=== PATIENT | male | born 1980 | race Caucasian/White ===

== ENCOUNTER 2019-04-06 17:01 | Emergency (ER) | payer OTHER ==
[~2019-04-06] VITALS: Ht 190.5 cm; Wt 93.0 kg
[2019-04-06 17:14] VITALS: BP 141/79
[2019-04-06 17:24] LABS: ABSOLUTE NEUTROPHILS 3.6 thou/uL (1.4-8.2); BASOPHILS 1.2 % (0.0-2.0); EOSINOPHILS 6.7 % (0.0-3.0); HEMATOCRIT 45.2 % (42.0-52.0); HEMOGLOBIN 15.5 gm/dL (14.0-18.0); LYMPHOCYTES 32.5 % (24.0-44.0); MCH 30.3 pg (26.0-34.0); MCHC 34.3 g/dL (28.0-37.0); MCV 88.2 fL (80.0-100.0); MONOCYTES 6.9 % (1.0-8.0); PLATELET COUNT 326 thou/uL (150-400); POLYS 52.7 % (36.0-66.0); RBC 5.12 mil/uL (4.50-6.00); RDW 13.3 % (10.5-14.5); WBC 6.9 thou/uL (4.0-11.0)
[2019-04-06 17:29] LABS: ANION GAP 9 mmol/L (7-16); BUN 12 mg/dL (7-18); CALCIUM 9.2 mg/dL (8.5-10.1); CHLORIDE 101 mmol/L (98-107); CO2 27 mmol/L (21-32); GLUCOSE 96 mg/dL (74-106); POTASSIUM 3.7 mmol/L (3.5-5.1); SODIUM 137 mmol/L (136-145)
[2019-04-06 17:37] LABS: LIPASE 155 U/L (73-393); TROPONIN-I <0.06 ng/mL (<0.06)
[2019-04-06] MEDS ORDERED: ZPAK PO (17:52)
--- NOTE | 2019-04-07 07:46 | EKG ---
[place] [address] [facility] [place] [address] ELECTROCARDIOGRAM REPORT Name: JAISON VELEZ Room #: DEP Doyle#: [id number] Admission: 04/06/19 Attend Phys: Discharge: 04/06/19 Date of : 78 Report #: [id number] THIS REPORT FOR: //name// [facility] ED Test Date: 2019-04-06 Test Time: 16:58:10 Pat Name: JAISON VELEZ Department: Room: Gender: Frequency Checker: ga : 1980 Requested By: Danny Mclaughlin Order Number: [id number] MD: Santino Ann Measurements Intervals [place] Rate: 74 P: 10 IN: 160 QRS: 32 QRSD: 93 T: 45 QT: 382 QTc: 424 Interpretive Statements Sinus rhythm Normal tracing No previous ECG available for comparison Electronically Signed On 04-07-2019 7:45:43 TRANSFER PUMPER by Santino Ann [email or web address] <ELECTRONICALLY SIGNED> By: Santino Ann MD, [facility] 04/07/19 0745 1658 1658 Santino Ann MD, FACC /EPI
== END 2019-04-06 18:02 | disposition home or self-care (01) ==
LOC: ER 17:01 → EDBD 17:01 → ER 18:02
PROVIDERS: Emergency Medicine
DX: R07.89 Other chest pain (principal); F17.220 Nicotine dependence, chewing tobacco, uncomplicated